=== PATIENT | female | born 1950 | race Caucasian/White ===

== ENCOUNTER 2017-12-18 20:08 | Emergency (ER) | payer OTHER, MEDICARE ==
--- NOTE | 2017-12-18 21:15 | C.PDOC ---
History Of Present Illness 67 year old female presents to the ED c/o left foot and left knee pain. Patient reports that while walking in the garage she stepped on a piece of cement and twisted her left ankle and feet. Patient fell on her knees and back. Patient is now ambulating with some difficulty, able to take a couple of steps unassisted. Patient denies LOC, headache, head injury, weakness, numbness. Time Seen by Provider: 12/18/17 21:15 Chief Complaint (Nursing): Lower Extremity Problem/Injury History Per: Patient History/Exam Limitations: no limitations Onset/Duration Of Symptoms: Hrs Current Symptoms Are (Timing): Still Present Recent travel outside of the [place]: No Additional History Per: Patient - Knee Description Of Injury: Fell, Twisted - Ankle/Foot Description Of Injury: Fell Past Medical History Reviewed: Historical Data, Nursing Documentation, Vital Signs Vital Signs: Last Vital Signs Temp 98.4 F 12/18/17 20:30 Pulse 104 H 12/18/17 20:30 Resp 20 12/18/17 20:30 BP 151/88 H 12/18/17 20:30 Pulse Ox 98 12/18/17 21:36 - Medical History PMH: Back Problems Surgical History: No Surg Hx Family History: States: Unknown Family Hx - Social History Hx Alcohol Use: No Hx Substance Use: No - Immunization History Hx Tetanus Toxoid Vaccination: No Hx Influenza Vaccination: No Hx Pneumococcal Vaccination: No Review Of Systems Constitutional: Negative for: Fever, Chills Cardiovascular: Negative for: Chest Pain Respiratory: Negative for: Shortness of Breath Gastrointestinal: Negative for: Nausea, Vomiting Genitourinary: Negative for: Incontinence Musculoskeletal: Positive for: Back Pain, Leg Pain, Foot Pain Skin: Negative for: Rash Neurological: Negative for: Weakness, Numbness, Headache, Dizziness Physical Exam - Physical Exam Appears: Non-toxic, No Acute Distress Skin: Warm, Dry Head: Normacephalic Eye(s): bilateral: Normal Inspection Neck: Supple Chest: Symmetrical Cardiovascular: Rhythm Regular Respiratory: No Rales, No Rhonchi, No Wheezing Gastrointestinal/Abdominal: Soft, No Tenderness, No Guarding, No Rebound Back: Normal Inspection Extremity: Tenderness (left ankle on movement ), Capillary Refill (< 2 seconds) , No Deformity, Other (small abrasion right knee, good passive and active movements) Extremity: Bilateral: Normal Color And Temperature, Normal ROM, Other (good plopliteal pulses) Pulses: Left Dorsalis Pedis: Normal, Right Dorsalis Pedis: Normal Neurological/Psych: Oriented x3, Normal Speech, Normal Motor, Normal Sensation Gait: Steady (with difficulty due to pain) ED Course And Treatment O2 Sat by Pulse Oximetry: 98 (ON RA) Pulse Ox Interpretation: Normal - Other Rad ankle X-Ray: Interpreted by Me, Viewed By Me Interpretation: no fx or dislocation, soft tissue swelling foot X-Ray: Interpreted by Me, Viewed By Me Interpretation: no fx or dislocation, heel spur, Progress Note: Plan: - Motrin 600 mg PO. - Left ankle X-Ray. - Left foot X- Ray. I've placedan air splint left ankle, good pulses and capilary refill afterwards. Pt feels better Reevaluation Time: 21:44 Reassessment Condition: Improved Medical Decision Making Medical Decision Making: Upon provider reevaluation patient is feeling better, is medically stable, and requires no further treatment in the ED at this time. Patient will be discharged home . Counseling was provided and all questions were answered regarding diagnosis and need for follow up with dr ng. There is agreement to discharge plan. Return if symptoms persist or worsen. Disposition Counseled Patient/Family Regarding: Studies Performed, Diagnosis, Need For Followup - Disposition Referrals: Kings Ng DPM [Medical Doctor] - Disposition: HOME/ ROUTINE Disposition Time: 21:15 Condition: FAIR Additional Instructions: Please return if symptoms recur Instructions: Ankle Sprain (DC), Foot Sprain (DC), Knee Pain (DC) Forms: [facility] ([place]ian), Work Excuse - Clinical Impression Clinical Impression: Fall, Ankle sprain, Sprain of foot, left, Knee contusion - Scribe Statement The provider has reviewed the documentation as recorded by the Scribe Aron Norton All medical record entries made by the Scribe were at my direction and personally dictated by me. I have reviewed the chart and agree that the record accurately reflects my personal performance of the history, physical exam, medical decision making, and the department course for this patient. I have also personally directed, reviewed, and agree with the discharge instructions and disposition.
[2017-12-18 23:30] VITALS: BP 164/90; PULSE 64; RESP 16; TEMP 98.9; O2SAT 97
--- NOTE | 2017-12-19 09:09 | RAD ---
Date of service: 12/18/2017 PROCEDURE: Left Foot Radiographs. HISTORY: fall COMPARISON: None. FINDINGS: BONES: No fracture appreciated. Inferior calcaneal spur . Gisele's tendon insetional enesthesophyte. JOINTS: Arthrosis- 1st metatarsal-phalangeal joint -proximal interphalangeal joints. Mid tarsal bones. SOFT TISSUES: Normal. OTHER FINDINGS: Hammertoe orientations. Os peroneum. IMPRESSION: No fracture. Other findings as above.
--- NOTE | 2017-12-19 09:25 | RAD ---
Date of service: 12/18/2017 PROCEDURE: Left Ankle Radiographs. HISTORY: fall COMPARISON: None FINDINGS: BONES: No fracture Inferior calcaneal spur . Gisele's tendon insetional enesthesophyte. JOINTS: . Osteoarthritis hypertrophic changes dorsal midfoot. Ankle mortise maintained. Talar dome intact SOFT TISSUES: Soft tissue swelling OTHER FINDINGS: Os peroneum IMPRESSION: No fracture. Other findings as above.
== END 2017-12-18 23:50 | disposition home or self-care (01) ==
LOC: C.ER 20:08
DX: S93.402A Sprain of unspecified ligament of left ankle, initial encounter (principal); S93.602A Unspecified sprain of left foot, initial encounter; S80.02XA Contusion of left knee, initial encounter; W18.30XA Fall on same level, unspecified, initial encounter; Y93.01 Activity, walking, marching and hiking